=== PATIENT | female | born 1990 | race Caucasian/White ===

== ENCOUNTER 2017-03-14 19:44 | Emergency (ER) | payer OTHER ==
[2017-03-14] MEDS ORDERED: MULTIVITAMINS1 EAC6 PO (19:58)
== END 2017-03-14 21:29 ==
LOC: EDMED 19:44
DX: S16.1XXA Strain of muscle, fascia and tendon at neck level, initial encounter (principal); S50.311A Abrasion of right elbow, initial encounter; S00.81XA Abrasion of other part of head, initial encounter; V49.40XA Driver injured in collision with unspecified motor vehicles in traffic accident, initial encounter